=== PATIENT | female | born 1985 | race Caucasian/White ===

== ENCOUNTER 2019-07-13 12:13 | Emergency (ER) | payer OTHER, BC ==
--- NOTE | 2019-07-13 13:00 | PDOC ---
History of Present Illness <Mirta Jones - Last Filed: 07/13/19 13:06> - General History Source: Patient Exam Limitations: Clinical Condition - History of Present Illness Initial Comments: 07/13/19 13:10 Patient G3, P1 LMP May 10 @ 17 weeks with no significant past medical history presented for evaluation of status post client from a fdc accidentally hit her stomach with bar from her wheelchair 2 hour ago. Patient reports 1 out of 10 mild right upper quadrant pain. Patient did not take anything for pain. Denies vaginal bleeding Is this a multiple visit Asthma Patient?: No Timing/Duration: 1 hour <Christophe Cain - Last Filed: 07/13/19 13:15> - General Chief Complaint: Pain Stated Complaint: 17 WEEKS/ INJ RUQ ABD PAIN Time Seen by Provider: 07/13/19 12:33 Past History <Mirta Joneselana - Last Filed: 07/13/19 13:06> - Past Medical History CVA: No COPD: No CHF: No DVT: No Thyroid Disease: Yes (HYPO) Other medical history: HODGKINS LYMPHOMA - Reproductive History Is Patient Now?: Yes (#): 3 Para: 1 - Immunization History Immunization Up to Date: Yes - Psycho Social/Smoking Cessation Hx Smoking History: Never smoked Information on smoking cessation initiated: No Hx Alcohol Use: No Drug/Substance Use Hx: No <Christophe Cain - Last Filed: 07/13/19 13:15> - Past Medical History Allergies/Adverse Reactions: Allergies Allergy/AdvReac Type Severity Reaction Status Date / Time No Known Allergies Allergy Verified 07/13/19 12:43 Home Medications: Ambulatory Orders Levothyroxine [Synthroid -] 50 mcg PO DAILY 07/13/19 Review of Systems - Review of Systems Able to Perform ROS?: Yes Is the patient limited Haitian proficient: No Constitutional: No: Fever, Malaise, Weakness HEENTM: No: Symptoms Reported Respiratory: No: Symptoms reported Cardiac (ROS): No: Symptoms Reported ABD/GI: Yes: Symptoms Reported, See HPI, Abdominal cramping (mild RUQ pain). No : Blood Streaked Bowels, Constipated, Diarrhea, Difficulty Swallowing, Nausea, Poor Appetite, Poor Fluid Intake, Rectal Bleeding, Vomiting, Indigestion : No: Symptoms Reported, Other (no vaginal bleeding) Musculoskeletal: Yes: Symptoms Reported, See HPI, Muscle Pain (mild RUQ abdominal wall pain) Integumentary: No: Symptoms Reported, Bruising, Change in Color Neurological: No: Symptoms reported, Dizziness All Other Systems: Reviewed and Negative <Christophe Cain - Last Filed: 07/13/19 13:15> *Physical Exam - Vital Signs Last Vital Signs Temp Pulse Resp BP Pulse Ox 98.2 F 87 16 87/52 L 100 07/13/19 12:18 07/13/19 12:18 07/13/19 12:18 07/13/19 12:18 07/13/19 12:18 <Mirta Jones - Last Filed: 07/13/19 13:06> - Vital Signs Last Vital Signs Temp Pulse Resp BP Pulse Ox 98.2 F 87 16 87/52 L 100 07/13/19 12:18 07/13/19 12:18 07/13/19 12:18 07/13/19 12:18 07/13/19 12:18 - Physical Exam General Appearance: Yes: Nourished, Appropriately Dressed. No: Apparent Distress HEENT: positive: MIRZA, Normal ENT Inspection Neck: positive: Supple Respiratory/Chest: positive: Lungs Clear, Normal Breath Sounds. negative: Respiratory Distress, Accessory Muscle Use Cardiovascular: positive: Regular Rhythm, Regular Rate Gastrointestinal/Abdominal: positive: Normal Bowel Sounds, Flat, Soft. negative : Tender Musculoskeletal: positive: Normal Inspection Extremity: positive: Normal Capillary Refill, Normal Inspection Integumentary: positive: Normal Color Neurologic: positive: Fully Oriented, Alert, Normal Mood/Affect, Normal Response <KyChristophe Bo - Last Filed: 07/13/19 13:15> Medical Decision Making - Medical Decision Making 07/13/19 13:07 The patient was seen and evaluated in conjunction with midlevel provider under my direct supervision, ancillary studies were reviewed. I agree with the plan as outlined with ced cain. HPI, workup/dispo as outlined. VS reviewed, wnl. baseline with low /soft BP, well hydrated. no abdominal tenderness, no vaginal bleeding. bedside pocus with live IUP, FHR at 146-152 bpm. 17.5 weeks by BPD. no pelvic FF noted. anticipate discharge with OB/ pcp followup, return precautions including worsening AP/bleeding. syncope. pelvic rest and avoid heavy lifting/trauma/strenuous activity <KarenMirta Iraida - Last Filed: 07/13/19 13:06> - Medical Decision Making 07/13/19 13:11 Clinical exam unremarkable with no abdominal tenderness on exam. Bedside ultrasound shows live IUP of 17.5 weeks gestational age with heart rate of 146 bpm. Patient with no vaginal bleeding and stable for discharge to take Tylenol as needed for pain with OB follow-up <Christophe Cain - Last Filed: 07/13/19 13:15> Discharge <Mirta Jones - Last Filed: 07/13/19 13:06> - Discharge Information Problems reviewed: Yes - Admission No <Christophe Cain - Last Filed: 07/13/19 13:15> - Discharge Information Clinical Impression/Diagnosis: 17 weeks gestation of Condition: Stable Disposition: HOME - Patient Discharge Instructions Additional Instructions: Ultrasound shows live baby with heart rate of 144bmp which is normal. Take tylenol as needed for pain. Follow-up with your OB - Post Discharge Activity Work/Back to School Note: Back to Work
[2019-07-13 13:28] VITALS: BP 90/55; PULSE 82; TEMP 98.8
== END 2019-07-13 13:27 | disposition home or self-care (01) ==
LOC: JER 12:13
DX: O26.892 Other specified pregnancy related conditions, second trimester (principal); Z3A.17 17 weeks gestation of pregnancy
CPT/HCPCS: 76815; 99282-25